=== PATIENT | female | born 1995 | race Caucasian/White ===

== ENCOUNTER 2017-07-01 09:54 | Emergency (ER) | payer OTHER ==
[2017-07-01 10:11] VITALS: PULSE 78; O2SAT 95
--- NOTE | 2017-07-01 10:27 | ERPHSYRPT ---
- History of Present Illness Time Seen by Provider: 07/01/17 10:17 Source: patient Exam Limitations: no limitations Patient Subjective Stated Complaint: pt states she was walking her dog yesterday when she slipped on the edge of the roadside falling into some leaves and debris, reports she has a splinter in her right index finger as a result that she tried to remove without success. reports pain and swelling. Triage Nursing Assessment: pt is aox3, pupils perrl, resps easy and non labored , radial pulses strong and equal. cap refill < 3 seconds. abrasions noted to the right index and middle fingers, mild swelling noted to the right index and middle fingers. no redness or drainage noted. sensation to digits are intact. pt unable to bend right index finger without pain. Physician History: The patient is a 21-year-old right-handed female with her mother complaining that she fell yesterday while walking the dog. She fell off the road side into some leaves. She thinks she has a wooden splinter in her right index finger. She tried to pull it out with tweezers but was unable to. Her tetanus vaccination is up-to-date. Her finger is a little bit swollen and tender. Her past medical history is unremarkable. Occurred: yesterday Reason for Fall: slipped, fell from standing pos Injuries/Pain Location: upper extremity (right index finger) Loss of Consciousness: no loss of consciousness Quality: sharpness Severity of Pain-Max: mild Severity of Pain-Current: mild Modifying Factors: Improves With: nothing Associated Symptoms (Fall): denies symptoms Allergies/Adverse Reactions: No Known Drug Allergies Allergy (Unverified 07/01/17 10:13) Hx Tetanus, Diphtheria Vaccination/Date Given: Yes Hx Influenza Vaccination/Date Given: No Hx Pneumococcal Vaccination/Date Given: No Immunizations Up to Date: Yes - Review of Systems Constitutional: No Fever, No Chills Eyes: No Symptoms Ears, Nose, & Throat: No Symptoms Respiratory: No Cough, No Dyspnea Cardiac: No Chest Pain, No Edema, No Syncope Abdominal/Gastrointestinal: No Abdominal Pain, No Nausea, No Vomiting, No Diarrhea Genitourinary Symptoms: No Dysuria Musculoskeletal: Fall, Injury Skin: Other (splinter), No Rash Neurological: No Dizziness, No Focal Weakness, No Sensory Changes Psychological: No Symptoms Endocrine: No Symptoms Hematologic/Lymphatic: No Symptoms Immunological/Allergic: No Symptoms All Other Systems: Reviewed and Negative - Past Medical History Pertinent Past Medical History: No - Past Surgical History Past Surgical History: No - Social History Smoking Status: Never smoker Drug Use: none Patient Lives Alone: No - Female History Hx Last Menstrual Period: 06/14/17 Hx Now: No - Nursing Vital Signs Nursing Vital Signs: Initial Vital Signs Temperature 98.5 F 07/01/17 10:02 Pulse Rate 78 07/01/17 10:02 Respiratory Rate 18 07/01/17 10:02 Blood Pressure 139/80 07/01/17 10:02 O2 Sat by Pulse Oximetry 95 07/01/17 10:02 Pain Scale Pain Intensity 3 - Marvel Coma Score Best Eye Response ([place]): (4) open spontaneously Best Verbal Response ([place]): (5) oriented Best Motor Response ([place]): (6) obeys commands Marvel Total: 15 - Physical Exam General Appearance: no apparent distress, alert Head Injury: no evidence of injury Eye Exam: PERRL/EOMI ENT Exam: airway nml Neck Exam: normal inspection, No tenderness Respiratory/Chest Exam: normal breath sounds, No chest tenderness, No respiratory distress Cardiovascular Exam: normal heart sounds, regular rate/rhythm Gastrointestinal Exam: soft, No tenderness, No distention, No guarding, No ecchymosis Rectal Exam: not done Back Exam: normal inspection, No vertebral tenderness Extremity Exam: normal inspection, normal range of motion, pelvis stable, No deformities Neurologic Exam: alert, oriented x 3, cooperative, sensation nml, No motor deficits Skin Exam: other (small splinter at right index finger DIP joint.) SpO2 Interpretation: normal SpO2: 95 Oxygen Delivery: Room Air Ordered Tests: Medication Summary Discontinued Medications Generic Name Dose Route Start Last Admin Trade Name Freq PRN Reason Stop Dose Admin Lidocaine HCl 10 ml 07/01/17 10:46 07/01/17 10:52 Xylocaine 1% Hcl 20 Ml Mdv IJ 07/01/17 10:47 10 ml STAT ONE Administration Lidocaine HCl Confirm 07/01/17 10:50 Xylocaine 1% Hcl 20 Ml Mdv Administered 07/01/17 10:51 Dose 1 ml .ROUTE .STK-MED ONE - Progress Progress: improved Progress Note: 07/01/17 11:03 The following procedure was performed: A digital block was performed on the right index finger using 10 mL of 1% lidocaine without epinephrine. After anesthesia was obtained, a small incision over the site of entry of the splinter was obtained. The splinter was grasped with forceps and successfully removed. The patient tolerated the procedure well. Hemostasis was achieved. Counseled pt/family regarding: diagnosis - Departure Time of Disposition: 11:04 Departure Disposition: Home Clinical Impression: History of retained foreign body fully removed Condition: Stable Critical Care Time: No Referrals: LAZARO XAVIER [Primary Care Provider] - Additional Instructions: You had a foreign body removed from your right index finger. Keep the area clean and dry. Take amoxicillin 500 mg 3 times a day for 10 days. Follow-up as needed. Prescriptions: Amoxicillin 500 mg Cap [Amoxil 500 mg] 1 cap PO TID #30 capsule
[2017-07-01] MEDS ORDERED: XYLOCAINE 1% HCL 20 ML MDV IJ ONE (10:46)
[2017-07-01] MEDS ORDERED: XYLOCAINE 1% HCL 20 ML MDV ONE (10:50)
[2017-07-01 11:20] VITALS: BP 120/67
== END 2017-07-01 11:21 | disposition home or self-care (01) ==
LOC: ED 09:54
DX: S60.450A Superficial foreign body of right index finger, initial encounter (principal); M79.5 Residual foreign body in soft tissue; W45.8XXA Other foreign body or object entering through skin, initial encounter
CPT/HCPCS: 20103; 20520; 99282; 99283